=== PATIENT | female | born 1960 | race Caucasian/White ===

== ENCOUNTER 2021-08-27 10:43 | Emergency (ER) | payer OTHER, SELFPAY ==
--- NOTE | ~2021-08-27 | XR_ITS ---
EXAMINATION: XR chest 2V DATE: 08/27/2021 11:21 INDICATION: Cough and shortness of breath. Chest pain. TECHNIQUE: Frontal and lateral views of the chest were obtained. COMPARISON: None. FINDINGS: There is mild scarring at the lung apices. There is blunting of left posterior costophrenic angle. No pneumothorax. The heart size is normal. IMPRESSION: 1. Mild scarring at the lung apices. 2. Blunting of left posterior costophrenic angle, consistent with scarring versus tiny pleural effusi on. Reviewed, dictated and finalized at location A. 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 Mild scarring at the lung apices. 2. Blunting of left posterior costophrenic angle, consistent with scarring vers us tiny pleural effusion.
[2021-08-27 10:51] VITALS: BP 145/79; PULSE 84; RESP 16; TEMP 37.8; O2SAT 99
--- NOTE | 2021-08-27 10:54 | ED.URI ---
HPI - URI/Sore Throat General Chief Complaint: Upper Respiratory Infection Stated Complaint: Cough/Chest Congestion Source: patient Mode of arrival: ambulatory Limitations: no limitations History of Present Illness HPI Narrative: 61-year-old female presented for complaint of hurts to breathe, sinus pressure/congestion, productive cough, fever/chills, Onset 3 days. Endorses pain with inspiration and cough. Endorses right lateral rib pain. 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 Taking Mucinex for symptoms. Patient is not vaccinated for Covid. 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 She is a smoker. MD elicited complaint: cough Related Data Allergies Allergy/AdvReac Type Severity Reaction Status Date / Time celecoxib Allergy Unknown Unknown Verified 08/27/21 10:59 sumatriptan Allergy Unknown Unknown Verified 08/27/21 10:59 tramadol Allergy Unknown Unknown Verified 08/27/21 10:59 Sulfa (Sulfonamide Allergy Nausea and Verified 08/27/21 10:59 Antibiotics) Vomiting Review of Systems Review of Systems: CONSTITUTIONAL: Endorses chills, fever. EYES: Denies visual changes, redness, or discharge. ENT: Reports rhinorrhea, congestion, sinus pain CARDIOVASCULAR: Denies chest pain, palpitations, or edema. RESPIRATORY: Reports cough, post nasal drainage, pain with breathing. Denies dyspnea. GASTROINTESTINAL: Denies abdominal pain, nausea, vomiting, diarrhea SKIN: Denies rash or itching. MUSCULOSKELETAL: Denies myalgia. NEUROLOGIC: Denies headache. [facility] Family History Family History Mother Carcinoma of colon Patient's mother is Father Family history of malignant neoplasm of bone Patient's father is Social History Social History Alcohol intake: never Exam Narrative: GENERAL: Ill-appearing, nontoxic no acute distress. HEAD: Normocephalic EYES: PERRLA, conjunctivae clear ENT: Mucous membranes moist. TM pearly tapia with dull light reflex bilaterally; no tragal tenderness. Oropharynx erythematous without lesions and without exudate, no drooling, no hoarseness, no trismus, uvula midline. NECK: Supple. No lymphadenopathy CHEST: Clear to auscultation, breath sounds equal. No wheezing, rhonchi, rales, or stridor. No respiratory distress, speaks in full sentences. HEART: Regular rate and rhythm. No murmur heard. SKIN: Warm, dry, no rash. NEURO: Alert and oriented x3. PSYCH: Normal mood and affect Course Course Emergency Course: Results of Covid test and chest x-ray reviewed with patient, will provide magic pack Rx should pt's sx worsen as she does not have PCP. v/u. Patient is aware of diagnosis, understands and agrees to treatment plan. Anticipatory guidance given. Patient agrees to follow-up as directed and is aware of reasons to seek care at the emergency department. Portions of this record may have been created with voice recognition software Level of Care: Express Care Visit Vital Signs Vital signs: Vital Signs Temperature 100.0 F H 08/27/21 10:51 Pulse Rate 84 08/27/21 10:51 Respiratory Rate 16 08/27/21 10:51 Blood Pressure 145/79 H 08/27/21 10:51 Pulse Oximetry 99 08/27/21 10:51 Temperature 100.0 F H 08/27/21 10:51 Pulse Rate 84 08/27/21 10:51 Respiratory Rate 16 08/27/21 10:51 Blood Pressure 145/79 H 08/27/21 10:51 Pulse Oximetry 99 08/27/21 10:51 reviewed MDM - URI/Sore Throat Differential Diagnosis Differential diagnosis: Likely upper respiratory infection, sinusitis, viral infection and pharyngitis Imaging Data My impression: Mild scarring at the lung apices. Blunting of left posterior costophrenic angle, consistent with scarring versus tiny pleural effusion. Radiologist's impression: EXAMIN
== END 2021-08-27 11:48 | disposition home or self-care (01) ==
PROVIDERS: Emergency Provider Nurse Practitioner Family
DX: J06.9 Acute upper respiratory infection, unspecified (principal); Z20.822 Contact with and (suspected) exposure to COVID-19
CPT/HCPCS: 71046; 87426; 99213; C9803; G0463